=== PATIENT | male | born 1970 | race Caucasian/White ===

== ENCOUNTER 2022-11-16 14:29 | Emergency (ER) | payer SELFPAY ==
[2022-11-16 18:43] LABS: Mean Corpuscular HGB CONC 33.3 g/dL (32.0-36.0); Mean Corpuscular Hemoglobin 31.6 pg (27.0-31.0); Mean Corpuscular Volume 94.9 fl (78.0-98.0); RBC Distribution Width 12.6 % (11.5-14.5); Red Blood Cell (RBC) Count 4.43 mill/uL (4.70-6.10)
[2022-11-16 18:45] LABS: INR-International Normal Ratio 0.9; PTT 27.2 sec (22.9-36.1); Prothrombin Time 12.7 sec (12.0-14.7)
[2022-11-16 18:55] LABS: #Eosinphils 0.1 thou/uL (0.0-0.7); #Neutrophils 5.9 thou/uL (1.40-6.50); %Basophils 0.9 % (0.0-1.0); %Eosinophils 1.5 % (0.0-10.0); %Lymphocytes 12.1 % (21.0-51.0); %Monocytes 11.8 % (0.0-10.0); %Neutrophils 73.5 % (42.0-75.0); Mean Platelet Volume 7.8 fL (7.4-10.4); Platelet Count 111 10x3/uL (130-400); Platelet Morphology Comment Appears Decreased; RBC Morphology Normal
[2022-11-16 19:00] LABS: ALT (SGPT) 19 U/L (8-55); AST (SGOT) 48 U/L (5-34); Albumin 4.3 g/dL (3.5-5.0); Alkaline Phosphatase 109 U/L (40-110); Anion Gap 16 mmol/L (10-20); BUN (Urea Nitrogen) 7 mg/dL (8.4-25.7); Bilirubin, Total 0.7 mg/dL (0.2-1.2); CRP (Inflammatory) 4.96 mg/dL (= or < 0.5); Calc. Creatinine Clearance 0 mL/min (70-130); Calcium 9.3 mg/dL (7.8-10.44); Carbon Dioxide 25 mmol/L (22-29); Chloride 99 mmol/L (98-107); Estimated GFR 110; Globulin 3.7 g/dL (2.4-3.5); Glucose 160 mg/dL (70-105); Potassium 3.9 mmol/L (3.5-5.1); Sodium 136 mmol/L (136-145)
== END 2022-11-16 21:17 | disposition home or self-care (01) ==
LOC: ERS 14:29
DX: T65.94XA Toxic effect of unspecified substance, undetermined, initial encounter (principal); L25.8 Unspecified contact dermatitis due to other agents; F17.220 Nicotine dependence, chewing tobacco, uncomplicated
CPT/HCPCS: 36415; 80053; 85025; 85610; 85652; 85730; 86140; 99283